=== PATIENT | male | born 1995 | race Caucasian/White ===

== ENCOUNTER 2018-03-22 22:29 | Emergency (ER) | payer OTHER ==
[~2018-03-22] VITALS: Ht 188 cm; Wt 104.3 kg
[~2018-03-22 22:29] MED LIST: NORCO 5/3251 TABLET PO
[2018-03-23] MEDS ORDERED: MOTRIN800 MG PO (00:15)
[2018-03-23] MEDS ORDERED: NORCO 10/3251 TABLET PO (00:15)
[2018-03-23 00:43] VITALS: BP 132/70
== END 2018-03-23 00:44 | disposition home or self-care (01) ==
LOC: EME 22:29 → EXP 22:29
DX: T23.002A Burn of unspecified degree of left hand, unspecified site, initial encounter (principal); W39.XXXA Discharge of firework, initial encounter; Y92.007 Garden or yard of unspecified non-institutional (private) residence as the place of occurrence of the external cause
CPT/HCPCS: J3010